=== PATIENT | male | born 2005 | race Caucasian/White ===

== ENCOUNTER 2024-12-29 07:07 | Emergency (ER) | payer OTHER ==
[~2024-12-29] VITALS: Ht 177.8 cm; Wt 101.2 kg
[~2024-12-29 07:07] MED LIST: HYDR-3713 PO
[2024-12-29] MEDS ORDERED: IBUP600T42 PO (10:13)
[2024-12-29] MEDS: IBUPROFEN 600 MG TAB PO ONE (10:21)
[2024-12-29 10:25] VITALS: BP 143/72; TEMP 96.8; O2SAT 98
== END 2024-12-29 10:26 | disposition home or self-care (01) ==
LOC: M ED 07:07
DX: S93.401A Sprain of unspecified ligament of right ankle, initial encounter (principal); X50.0XXA Overexertion from strenuous movement or load, initial encounter; Y92.89 Other specified places as the place of occurrence of the external cause; Y93.02 Activity, running; Y99.1 Military activity; Z91.09 Other allergy status, other than to drugs and biological substances; Z79.1 Long term (current) use of non-steroidal anti-inflammatories (NSAID)